=== PATIENT | female | born 1970 | race African-American/Black ===

== ENCOUNTER 2022-12-21 15:08 | Inpatient (IN) | payer OTHER ==
[~2022-12-21] VITALS: Ht 165.1 cm; Wt 53.1 kg
[2022-12-21] MEDS ORDERED: SODIUM CHLORIDE 0.9% 1000ML BAG (SEPSIS BOLUS) IV ONE (15:30)
[2022-12-21 17:18] LABS: HEMATOCRIT. 45.2 % (36.0-48.0); HEMOGLOBIN. 12.2 g/dL (12.0-16.0); MEAN CORPUSCULAR HEMOGLOBIN 31.1 pg (28.0-32.0); MEAN CORPUSCULAR VOLUME 115.1 fL (81.0-99.0); MEAN PLATELET VOLUME 10.3 fl (7.4-10.4); PLATELET 238 x1000/uL (130-400); RED BLOOD CELL COUNT 3.92 mill/uL (4.2-5.4)
[2022-12-21 17:22] LABS: DIFFERENTIAL COMMENT 1
[2022-12-21 17:25] LABS: CHLORIDE 98 mEq/L (98-107); INDEX HEMOLYSI 3 (1-3); INDEX ICTERIC 1 (1-4); INDEX LIPEMIC 1 (1-3); POTASSIUM 6.1 mEq/L (3.5-5.1); SODIUM 131 mEq/L (136-145)
[2022-12-21 17:34] LABS: ALANINE AMINOTRANSFERASE 39 IU/L (13-61); ALBUMIN 3.7 g/dL (3.4-5.0); ASPARTATE AMINOTRANSFERASE 32 IU/L (15-37); BILIRUBIN TOTAL 0.3 mg/dL (0.1-1.0); CALCIUM 8.7 mg/dL (8.5-10.1); CREATININE 1.2 mg/dL (0.6-1.3); NT PRO B-TYPE NATRIURETIC PEP 326 pg/mL (5-125); UREA NITROGEN BLOOD 26 mg/dL (7-21)
[2022-12-21 17:43] LABS: PLATELET ESTIMATE NORMAL
[2022-12-21 17:46] LABS: CARBON DIOXIDE 4 mEq/L (21-32); GLUCOSE 876 mg/dL (70-105)
[2022-12-21] MEDS ORDERED: INSULIN REGULAR (HUMULIN R) 300UNITS/3ML VIAL IV STA (17:51)
[2022-12-21] MEDS ORDERED: PIPERACILLIN/TAZOBACTAM 3.375GM/50ML PREMIX IV NR (18:00)
[2022-12-21] MEDS ORDERED: CEFTRIAXONE 1GM PREMIX 50 ML IV ONE (18:00)
[2022-12-21 18:13] LABS: BETA HYDROXYBUTYRATE 13.4 mMol/L (0.0-0.3)
[2022-12-21] MEDS ORDERED: MORPHINE SULFATE 2 MG/ML CPJ (NOT FOR IM USE) IV ONE (18:15)
[2022-12-21] MEDS ORDERED: VANCOMYCIN 1G PREMIX 200 ML IV SCH (18:15)
[2022-12-21] MEDS ORDERED: ONDANSETRON HCL 4MG/2ML INJ IV ONE (18:15)
[2022-12-21] MEDS ORDERED: SODIUM CHLORIDE 0.9% 1,000 ML IV SCH (18:30)
[2022-12-21] MEDS: BLOOD SUGAR DIAGNOSTIC STRIP TEST SCH ×6 (18:30→23:36)
[2022-12-21] MEDS ORDERED: DEXT 5%/0.9% NACL 1,000 ML IV SCH (18:30)
[2022-12-21] MEDS ORDERED: DEXTROSE 50% WATER 50ML SYRINGE IV PRN (18:30)
[2022-12-21] MEDS ORDERED: INSULIN REGULAR (DRIP) 100 UNITS in SODIUM CHLORIDE 0.9% 99 ML IV SCH (18:30)
[2022-12-21] MEDS ORDERED: INSULIN REGULAR 100U/100ML PMX 100 ML IV ONE (18:45)
[2022-12-21] MEDS ORDERED: LEVOFLOXACIN 500MG PREMIX 100 ML IV ONE (19:15)
[2022-12-21 19:23] LABS: PHOSPHORUS 8.2 mg/dL (2.5-4.9)
[2022-12-21] MEDS ORDERED: GUAIFENESIN 200MG/10ML SUGAR FREE UDC PO PRN (20:00)
[2022-12-21] MEDS ORDERED: CLONIDINE 0.1MG TABLET PO PRN (20:00)
[2022-12-21] MEDS ORDERED: IPRATROPIUM/ALBUTEROL 0.5-3(2.5)MG/3ML NEB HHN PRN (20:00)
[2022-12-21] MEDS ORDERED: DOCUSATE SODIUM 100MG CAPSULE PO PRN (20:00)
[2022-12-21] MEDS ORDERED: MAGNESIUM/ALUMINUM HYDROXIDE/SIMETHICONE 30ML UDC PO PRN (20:00)
[2022-12-21] MEDS ORDERED: ACETAMINOPHEN 325MG TABLET PO PRN (20:00)
[2022-12-21] MEDS ORDERED: ACETAMINOPHEN 650MG/20.3ML UDC GT PRN (20:00)
[2022-12-21] MEDS ORDERED: SODIUM CHLORIDE 0.45% 1,000 ML IV SCH (20:45)
[2022-12-21] MEDS ORDERED: ENOXAPARIN 40MG/0.4ML SYR SUBCUT SCH (21:00)
[2022-12-21 21:09] LABS: BG BASE EXCESS -27.8 mmol/L (-2.0-2.0); BG CARBOXYHEMOGLOBIN 0.1 % (0.5-1.5); BG DEOXYHEMOGLOBIN 1.6 % (0.0-5.0); BG FRACTION INSPIRED OXYGEN 21; BG HCO3 ACT 3.2 mmol/L (22.0-26.0); BG METHEMOGLOBIN 0.3 % (0.0-1.5); BG OXYGEN SATURATION 98.4 % (92.0-98.5); BG PCO2 15.6 mmHg (35.0-45.0); BG PO2 141.9 mmHg (75.0-100.0); BG SAMPLE SITE RIGHT RADIAL; BG TOTAL HEMOGLOBIN 12.9 g/dL (12.0-18.0); BG VENT MODE ROOM AIR
[2022-12-21 22:07] LABS: CALCIUM 7.9 mg/dL (8.5-10.1); POTASSIUM 5.6 mEq/L (3.5-5.1)
[2022-12-21 22:08] LABS: INDEX HEMOLYSI 2 (1-3)
[2022-12-21 22:14] LABS: CREATININE 1.3 mg/dL (0.6-1.3)
[2022-12-21 22:15] LABS: CREATINE KINASE 137 IU/L (26-192); CREATINE KINASE MB FRACTION 4.2 ng/mL (0.5-3.6); TROPONIN I HIGH SENSITIVITY 17 ng/L (<54)
[2022-12-21 22:21] LABS: INDEX HEMOLYSI 3 (1-3)
[2022-12-21 22:41] LABS: LACTIC ACID 3.1 mmol/L (0.4-2.0)
[2022-12-21 22:53] LABS: FOLIC ACID (FOLATE) SERUM > 20.00 ng/mL (>5.38); VITAMIN B12 SERUM > 2000.0 pg/mL (211-911)
[2022-12-21] MEDS: SODIUM BICARBONATE 150 MEQ in SODIUM CHLORIDE 0.45% 1,000 ML IV SCH (23:01)
[2022-12-21 23:08] LABS: CLARITY URINE CLOUDY (CLEAR); COLOR URINE YELLOW (YELLOW); GLUCOSE URINE 3+ (NEGATIVE); KETONES URINE 3+ (NEGATIVE); LEUKOCYTE ESTERASE URINE NEGATIVE (NEGATIVE); NITRITE URINE NEGATIVE (NEGATIVE); OCCULT BLOOD URINE 1+ (NEGATIVE); PROTEIN URINE 1+ (NEGATIVE); UROBILINOGEN URINE 0.2 E.U./dL (0.2-1.0)
[2022-12-21 23:14] LABS: BACTERIA URINE 1+; SQUAMOUS EPITHELIAL CELL URINE 2+ /lpf (RARE/1+); WBC URINE 0-2 /hpf (0-2); YEAST URINE NONE SEEN
[2022-12-21 23:22] LABS: *AMPHETAMINES SCREEN URINE NEGATIVE (NEGATIVE); *BARBITURATES SCREEN URINE NEGATIVE (NEGATIVE); *BENZODIAZEPINES SCREEN URINE NEGATIVE (NEGATIVE); *COCAINE SCREEN URINE NEGATIVE (NEGATIVE); CANNABINOID URINE SCREEN NEGATIVE (NEGATIVE); ECSTASY MDMA SCREEN URINE NEGATIVE (NEGATIVE); METHADONE URINE SCREEN NEGATIVE (NEGATIVE); OPIATES URINE SCREEN PRESUMTIVE POSITIVE (NEGATIVE); PHENCYCLIDINE URINE SCREEN NEGATIVE (NEGATIVE)
[2022-12-21 23:28] LABS: COARSE GRANULAR CASTS URINE 0-5 /lpf; RBC URINE 0-2 /hpf (0-2)
[2022-12-21 23:58] LABS: INDEX HEMOLYSI 2 (1-3)
[2022-12-22] VITALS (19 sets, daily range): BP systolic 93–144; BP diastolic 60–97; PULSE 103–113; RESP 13–25; TEMP 98.5–98.9; O2SAT 98
[2022-12-22 00:06] LABS: AMYLASE 786 IU/L (25-115)
[2022-12-22 00:22] LABS: POTASSIUM 4.8 mEq/L (3.5-5.1)
[2022-12-22 00:28] LABS: CREATININE 1.2 mg/dL (0.6-1.3); PHOSPHORUS 4.7 mg/dL (2.5-4.9)
[2022-12-22] MEDS ORDERED: KCL 20MEQ/100ML PREMIX 100 ML IV NR (01:45)
[2022-12-22] MEDS: BLOOD SUGAR DIAGNOSTIC STRIP TEST SCH ×10 (02:46→17:21)
[2022-12-22] MEDS ORDERED: INSULIN REGULAR 100U/100ML PMX 100 ML IV SCH (03:30)
[2022-12-22] MEDS ORDERED: INSULIN REGULAR (HUMULIN R) 300UNITS/3ML VIAL IV PRN (03:30)
[2022-12-22] MEDS ORDERED: ONDANSETRON HCL 4MG/2ML INJ IV PRN (03:30)
[2022-12-22] MEDS: SODIUM BICARBONATE 150 MEQ in SODIUM CHLORIDE 0.45% 1,000 ML IV SCH (03:40)
[2022-12-22] MEDS ORDERED: DEXT 5%/0.9% NACL 1,000 ML IV SCH (05:15)
[2022-12-22] MEDS ORDERED: PIPERACILLIN/TAZOBACTAM 3.375 G in DEXTROSE 5% WATER 50 ML IV SCH ×2 (06:00→14:00)
[2022-12-22 08:42] LABS: BASOPHILS % 0.3 % (0.0-2.0); EOSINOPHILS % 0.5 % (0.0-5.0); HEMATOCRIT. 32.4 % (36.0-48.0); HEMOGLOBIN. 11.2 g/dL (12.0-16.0); LYMPHOCYTES % 9.6 % (20.0-50.0); MEAN CORPUSCULAR HEMOGLOBIN 31.4 pg (28.0-32.0); MEAN CORPUSCULAR HGB CONC 34.5 g/dL (31.0-37.0); MEAN CORPUSCULAR VOLUME 90.8 fL (81.0-99.0); MEAN PLATELET VOLUME 8.7 fl (7.4-10.4); MONOCYTES % 12.3 % (2.0-8.0); NEUTROPHILS % 77.3 % (40.0-76.0); PLATELET 198 x1000/uL (130-400); RED BLOOD CELL COUNT 3.57 mill/uL (4.2-5.4); RED CELL DISTRIBUTION WIDTH 13.1 % (11.6-14.6); WHITE BLOOD COUNT 14.7 x1000/uL (4.5-11.0)
[2022-12-22 08:48] LABS: CHLORIDE 107 mEq/L (98-107); INDEX HEMOLYSI 1 (1-3); INDEX ICTERIC 1 (1-4); INDEX LIPEMIC 1 (1-3); POTASSIUM 3.2 mEq/L (3.5-5.1); SODIUM 141 mEq/L (136-145)
[2022-12-22] MEDS ORDERED: PANTOPRAZOLE SODIUM 40 MG/VIAL IV SCH (09:00)
[2022-12-22 09:06] LABS: BG BASE EXCESS 0.7 mmol/L (-2.0-2.0); BG CARBOXYHEMOGLOBIN 0.4 % (0.5-1.5); BG DEOXYHEMOGLOBIN 2.3 % (0.0-5.0); BG FRACTION INSPIRED OXYGEN 21; BG HCO3 ACT 24.1 mmol/L (22.0-26.0); BG METHEMOGLOBIN 0.2 % (0.0-1.5); BG OXYGEN SATURATION 97.7 % (92.0-98.5); BG OXYHEMOGLOBIN 97.1 % (94.0-97.0); BG PCO2 34.7 mmHg (35.0-45.0); BG PO2 90.8 mmHg (75.0-100.0); BG SAMPLE SITE RIGHT RADIAL; BG TOTAL HEMOGLOBIN 11.8 g/dL (12.0-18.0); BG VENT MODE ROOM AIR
[2022-12-22 09:07] LABS: BETA HYDROXYBUTYRATE 0.2 mMol/L (0.0-0.3); CALCIUM 7.9 mg/dL (8.5-10.1); CARBON DIOXIDE 25 mEq/L (21-32); CHOLESTEROL 118 mg/dL (<200); CREATINE KINASE 193 IU/L (26-192); CREATINE KINASE MB FRACTION 6.9 ng/mL (0.5-3.6); CREATININE 0.7 mg/dL (0.6-1.3); GLUCOSE 145 mg/dL (70-105); HDL CHOLESTEROL 80 mg/dL (40-59); LDL CHOLESTEROL 41 mg/dL (5-100); T4 FREE 1.21 ng/dL (0.76-1.46); THYROID STIMULATING HORMONE 0.28 uIU/mL (0.36-3.74); TRIGLYCERIDE 49 mg/dL (0-150); UREA NITROGEN BLOOD 25 mg/dL (7-21)
[2022-12-22 09:53] LABS: TROPONIN I HIGH SENSITIVITY 65 ng/L (<54)
[2022-12-22] MEDS ORDERED: DEXTROSE 50% WATER 50ML SYRINGE IV PRN (10:30)
[2022-12-22] MEDS ORDERED: INSULIN GLARGINE 100 UNITS/ML SUBCUT SCH (10:53)
[2022-12-22] MEDS ORDERED: POTASSIUM PHOS,M-BASIC-D-BASIC 30 MMOL in DEXT 5% WATER 500 ML IV SCH (11:30)
[2022-12-22] MEDS: DEXT 5%/0.9% NACL KCL 20MEQ/L 1,000 ML IV SCH ×2 (11:48→17:27)
[2022-12-22] MEDS: INSULIN LISPRO 100 UNITS/ML SUBCUT SCH ×4 (12:50→17:29)
[2022-12-22 14:57] LABS: CHLORIDE 110 mEq/L (98-107); INDEX HEMOLYSI 1 (1-3); INDEX ICTERIC 1 (1-4); INDEX LIPEMIC 1 (1-3); POTASSIUM 3.8 mEq/L (3.5-5.1); SODIUM 140 mEq/L (136-145)
[2022-12-22 15:04] LABS: CALCIUM 7.7 mg/dL (8.5-10.1); CARBON DIOXIDE 25 mEq/L (21-32); CREATININE 0.7 mg/dL (0.6-1.3); GLUCOSE 209 mg/dL (70-105); PHOSPHORUS 1.9 mg/dL (2.5-4.9); UREA NITROGEN BLOOD 22 mg/dL (7-21)
[2022-12-22 17:17] LABS: CHLORIDE 108 mEq/L (98-107); INDEX HEMOLYSI 1 (1-3); INDEX ICTERIC 1 (1-4); INDEX LIPEMIC 1 (1-3); POTASSIUM 4.3 mEq/L (3.5-5.1); SODIUM 138 mEq/L (136-145)
[2022-12-22 17:22] LABS: CALCIUM 7.4 mg/dL (8.5-10.1); CARBON DIOXIDE 23 mEq/L (21-32); CREATININE 0.6 mg/dL (0.6-1.3); GLUCOSE 397 mg/dL (70-105); PHOSPHORUS 2.8 mg/dL (2.5-4.9); UREA NITROGEN BLOOD 19 mg/dL (7-21)
[2022-12-25 16:06] LABS: HEPATITIS B SURFACE ANTIGEN NEGATIVE
[2022-12-25 16:34] LABS: HEPATITIS C VIR.AB 0.14 INDEXVAL (0.00-0.80)
== END 2022-12-22 19:50 | disposition home or self-care (01) | DRG 639 ==
LOC: EDBD 15:08 → ER 15:08 → CVICU 18:51 → EDBEDREQ 19:07 → ENRESERV 12-22 01:42 → MICUSO 12-22 03:53 → CVICU 12-22 03:56 → 3WST 12-22 18:26
PROVIDERS: ADMIT Internal Medicine; ATTEND Internal Medicine
DX: E10.10 Type 1 diabetes mellitus with ketoacidosis without coma (principal); E87.5 Hyperkalemia; Z96.41 Presence of insulin pump (external) (internal); E03.9 Hypothyroidism, unspecified; Z20.822 Contact with and (suspected) exposure to COVID-19; D75.89 Other specified diseases of blood and blood-forming organs; F17.210 Nicotine dependence, cigarettes, uncomplicated; Z79.4 Long term (current) use of insulin; Z91.148 Patient's other noncompliance with medication regimen for other reason
CPT/HCPCS: 36415; 36600; 71045; 74176; 80048; 80053; 80061; 80305; 80320; 81003; 82010; 82150; 82375; 82550; 82553; 82607; 82746; 82805; 82962; 83605; 83735; 83880; 83930; 84100; 84145; 84439; 84443; 84484; 85025; 85379; 86803; 87340; 87426; 93005; 93970; 99291; C9113; C9803; J1650; J1815; J1956; J2270; J2543; J3370; J3480; J3490; J7030; J7042; J7060; G0480